=== PATIENT | male | born 1955 | race Caucasian/White ===

== ENCOUNTER 2018-05-26 06:09 | Emergency (ER) | payer BC ==
[~2018-05-26] VITALS: Ht 177.8 cm; Wt 72.6 kg
[2018-05-26 06:22] VITALS: BP_SYST 151
[2018-05-26 07:25] VITALS: BP_SYST 140
== END 2018-05-26 07:25 | disposition home or self-care (01) ==
LOC: SED 06:09
DX: T15.02XA Foreign body in cornea, left eye, initial encounter (principal); F17.200 Nicotine dependence, unspecified, uncomplicated; I10 Essential (primary) hypertension; Z88.0 Allergy status to penicillin; X58.XXXA Exposure to other specified factors, initial encounter; Y93.89 Activity, other specified; Y92.89 Other specified places as the place of occurrence of the external cause; Y99.8 Other external cause status
CPT/HCPCS: 99282